=== PATIENT | male | born 1940 | race Caucasian/White ===

== ENCOUNTER 2019-03-29 16:48 | Inpatient (IN) | payer MEDICARE ==
[~2019-03-29] VITALS: Ht 182.9 cm; Wt 121.0 kg
[~2019-03-29 16:48] MED LIST: ACET500 PO; ALLERCLEAR10 MG PO; ANTIHISTAMINE; ATOR20 PO; Altoprev20 MG PO; Amaryl2 MG PO; BUPR100 PO; BUPR150ER PO; Bactrim Ds Tab1 EACH PO; CENTRUM SILVER1 EAC1 PO; FURO40 PO; GABA100 PO; GLUC500 PO; HYDCHL25 PO; IBUP800 PO; Keflex500 MG PO; LISI20 PO; Lopressor 25 mg25 MG PO; METF500C PO; Naprosyn500 MG PO; POTCHL20ER PO; Percocet 10-321 EACH PO; Percocet 5-3251 EACH PO; [UNRECOGNIZED DRUG - SUPPLY] MC
[2019-03-29 17:36] LABS: BASOPHILS ABSOLUTE AUTO 0.06 K/mm3 (0.00-0.23); BASOPHILS PERCENT AUTO 1 % (0-2); EOSINOPHILS ABSOLUTE AUTO 0.43 K/mm3 (0.00-0.68); EOSINOPHILS PERCENT AUTO 4 % (0-6); Hematocrit 37.2 % (37.0-53.0); Hemoglobin 11.7 g/dL (13.5-17.5); IMMATURE GRAN ABSOLUTE AUTO 0.04 K/mm3 (0.00-0.10); IMMATURE GRAN PERCENT AUTO 0 % (0-1); LYMPHOCYTES ABSOLUTE AUTO 1.17 K/mm3 (0.84-5.20); LYMPHOCYTES PERCENT AUTO 10 % (21-46); MONOCYTES ABSOLUTE AUTO 1.11 K/mm3 (0.16-1.47); MONOCYTES PERCENT AUTO 10 % (4-13); Mean Corpuscular HGB 28.7 pg (26.0-34.0); Mean Corpuscular HGB Conc 31.5 g/dL (31.5-36.5); Mean Corpuscular Volume 91 fL (80-100); Mean Platelet Volume 10.4 fL (9.1-12.4); NEUTROPHILS ABSOLUTE AUTO 8.63 K/mm3 (1.96-9.15); NEUTROPHILS PERCENT AUTO 76 % (41-73); Platelet Count 315 K/mm3 (150-400); RDW Coefficient Variation 14.4 % (11.7-14.2); RDW Standard Deviation 48.4 fL (35.1-46.3); Red Blood Cell Count 4.07 M/mm3 (4.30-5.90); White Blood Cell Count 11.44 K/mm3 (4.00-11.30)
[2019-03-29 17:55] LABS: C-REACTIVE PROTEIN, EXT RANGE 11.4 mg/dL (0.000-0.300)
[2019-03-29 17:58] LABS: Albumin, Blood 3.6 g/dL (3.4-5.0); Albumin/Globulin Ratio 0.9 (0.8-1.8); Bilirubin, Total 0.4 mg/dL (0.1-1.0); Bun/Creatinine Ratio 36.6 (12.0-20.0); Calcium, Blood 9.3 mg/dL (8.5-10.1); Creatinine, Blood 1.91 mg/dL (0.60-1.20); Potassium, Blood 4.4 mmol/L (3.5-5.5); Total Protein, Blood 7.6 g/dL (6.4-8.2)
[2019-03-30 05:06] LABS: Vancomycin, Random 17.6 ug/mL
--- NOTE | 2019-03-30 06:34 | NUR ---
SHIFT SUMMARY PT RESTING WELL THIS AM. AAOX4. NPO FOR PROCEDURE. DISCOMFORT AT TOLERABLE LEVEL T/O NIGHT, NO NAUSEA/EMESIS. WOUND TO RIGHT KNEE DIRECTOR OF OPERATIONS, NO DRAINAGE THIS SHIFT. PT UP SBA TO RESTROOM, TOLERATES WELL. IVF + ABX PER ORDERS. PT UNABLE TO VERIFY HOME MEDICATIONS, WILL REPORT TO DAY SHIFT RN TO OBTAIN MEDICATION LIST FROM CAREGIVER. PT RESTING AT THIS TIME, NADN, CALL LIGHT IN REACH.
[2019-03-30] MEDS ORDERED: ELIQUIS5 M2 PO (11:10)
[2019-03-30] MEDS ORDERED: METO100ER PO (11:18)
--- NOTE | 2019-03-30 11:30 | NUR ---
Patient is sitting on the edge of bed and alert. Patient tells me about his medical issues, his careers (38 yrs in [email or web address] field) his spiritual journey (form Espiscopal, to Episcopalian to Jewish to no attendance). Patient tells me that he is still a Buddhist believer and finds strength prayer and music. I listen empathically, normalize patient's experience and provide pastoral elder counselor and companionship. Patient responds well and voices appreciation for the vait.
--- NOTE | 2019-03-30 12:08 | NUR ---
History, Chart, Medications and Allergies reviewed before start of procedure. Lungs with fine crackle right base. Denies SOB. Patient confirms NPO status and agrees with scheduled surgery. Pre-Op teaching done. Pt verbalizes understanding. Pt's ring removed and placed in baggy to put in chart. Notified floor nurse.
--- NOTE | 2019-03-30 19:23 | NUR ---
SHIFT SUMMARY PT POD 0 I&D W/WOUND VAC PLACEMENT ON RLE. FOAM COMPRESSED, SCANT AMT DRAINAGE PRESENT IN CANISTER. PT DENIES PAIN T/O SHIFT. SBA W/FWW. IV ABX AND FLUIDS PER EMAR.
[2019-03-31 05:27] LABS: BASOPHILS ABSOLUTE AUTO 0.06 K/mm3 (0.00-0.23); BASOPHILS PERCENT AUTO 1 % (0-2); EOSINOPHILS ABSOLUTE AUTO 0.34 K/mm3 (0.00-0.68); EOSINOPHILS PERCENT AUTO 4 % (0-6); Hematocrit 30.5 % (37.0-53.0); Hemoglobin 9.5 g/dL (13.5-17.5); IMMATURE GRAN ABSOLUTE AUTO 0.04 K/mm3 (0.00-0.10); IMMATURE GRAN PERCENT AUTO 1 % (0-1); LYMPHOCYTES ABSOLUTE AUTO 0.87 K/mm3 (0.84-5.20); LYMPHOCYTES PERCENT AUTO 10 % (21-46); MONOCYTES ABSOLUTE AUTO 0.82 K/mm3 (0.16-1.47); MONOCYTES PERCENT AUTO 9 % (4-13); Mean Corpuscular HGB 29.1 pg (26.0-34.0); Mean Corpuscular HGB Conc 31.1 g/dL (31.5-36.5); Mean Corpuscular Volume 93 fL (80-100); Mean Platelet Volume 10.4 fL (9.1-12.4); NEUTROPHILS ABSOLUTE AUTO 6.57 K/mm3 (1.96-9.15); NEUTROPHILS PERCENT AUTO 76 % (41-73); Platelet Count 235 K/mm3 (150-400); RDW Coefficient Variation 14.4 % (11.7-14.2); RDW Standard Deviation 49.6 fL (35.1-46.3); Red Blood Cell Count 3.27 M/mm3 (4.30-5.90)
[2019-03-31 05:43] LABS: Anion Gap 5 mmol/L (6-16); Blood Urea Nitrogen 47 mg/dL (8-24); Bun/Creatinine Ratio 27.8 (12.0-20.0); CO2, Blood 26 mmol/L (21-32); Calcium, Blood 8.4 mg/dL (8.5-10.1); Chloride, Blood 112 mmol/L (98-108); Creatinine, Blood 1.69 mg/dL (0.60-1.20); Glomerular Filtration Rate 42 (60-); Glucose, Blood 155 mg/dL (70-99); Potassium, Blood 4.4 mmol/L (3.5-5.5); Sodium, Blood 143 mmol/L (136-145); Vancomycin, Random 13.3 ug/mL
--- NOTE | 2019-03-31 06:39 | NUR ---
SHIFT SUMMARY: NO ACUTE CHANGES THIS SHIFT. HE DID STATE THAT HE IS BEGINNING TO HAVE SOME MILD PAIN IN HIS LEG. HE REQUESTED MEDICATION FOR THIS. HE WAS INFORMED THAT HE HAS GABAPENTIN SCHEDULED AND HE FELT THAT WOULD BE EFFECTIVE AND WAS CONTENT TO WAIT UNTIL THE SCHEDULED TIME. HE IS ABLE TO MAKE HIS NEEDS KNOWN. HE WORE HIS CPAP DURING THE NIGHT. HE DID HAVE ONE EPISODE OF URINARY INCONTINENCE. VSS.
--- NOTE | 2019-03-31 08:28 | NUR ---
DR. TRAYLOR IN TO SEE PT AT THIS TIME
--- NOTE | 2019-03-31 12:59 | NUR ---
Patient is sitting on the edge of his bed and alert. Patient openly shares about his surgery, his , Kalyn, and about his spiritual struggles. I listen empathically and provide pastoral clinical counselor and prayer. Patient responds well and shows signs of catharsis. I will continue to remain available to patient and family.
--- NOTE | 2019-03-31 13:33 | NUR ---
MIDSHIFT NOTE PT A&OX4, CURRENTLY RESTING IN BED. WOUND VAC IN PLACE WITH DRESSING C/D/I AND COMPRESSED; DRAINING SS. ABX AND FLUIDS INFUSING. VSS AT BASELINE. PAIN MANAGED PER EMAR. TOLERATING REGULAR DIET. WORKED WITH THERAPY TODAY. REPORTS VOIDING WITHOUT DIFFICULTY AND PASSING FLATUS. CALL LIGHT WITHIN REACH AND PT DEMONSTRATED APPROPRIATE USE.
--- NOTE | 2019-03-31 17:41 | NUR ---
SHIFT SUMMARY PT A&OX4 WITH VS AT BASELINE. RECEIVED ABX AND NS PER EMAR. REPORTS PAIN TOLERABLE. BM AND VOIDING TODAY, USES BSC W/ASSIST. WOUND VAC IN PLACE, DRESSING C/D/I AND COMPRESSED, DRAINING SS. CALL LIGHT WITHIN REACH AND IS ABLE TO USE IT APPROPRIATELY.
[2019-04-01 04:26] LABS: Bun/Creatinine Ratio 20.4 (12.0-20.0); Calcium, Blood 8.3 mg/dL (8.5-10.1); Creatinine, Blood 1.57 mg/dL (0.60-1.20); Potassium, Blood 4.4 mmol/L (3.5-5.5)
--- NOTE | 2019-04-01 04:34 | NUR ---
SHIFT SUMMARY POD2 I&D R KNEE. PATIENT AA0X4, VSS. WOUND VAC IN PLACE FOAM COMPRESSED AND DRAINING SS FLUID. PATIENT SITS ON EDGE OF BED TO URINATE. DENIES PAIN DURING SHIFT. CPAP IN PLACE DURING NIGHT. PATIENT ASLEEP MOST OF NIGHT.
--- NOTE | 2019-04-01 08:18 | NUR ---
DR. TRAYLOR IN TO SEE PT
--- NOTE | 2019-04-01 13:40 | NUR ---
WORKING WITH THERAPY AT THIS TIME
--- NOTE | 2019-04-01 15:59 | NUR ---
Patient is lying in bed and resting but easily awakens to the sound of his name. Patient shares with me his frustration about having to go to a rehabilitation center instead of going home. We talk about what might be good about it (quality of care, social aspect, it is for a short 2 wk duration). Patient warms up to the idea. I listen empathically and provide prayer. Patient responds well and shows signs of an elevated mood. I will continue to be available to patient and family.
--- NOTE | 2019-04-01 17:51 | NUR ---
SHIFT SUMMARY PT A&OX4 W/ VS AT BASELINE. RAMAKRISHNA WRAP AND PATENT WOUND VAC IN PLACE; DRESSING C/D/I. DRESSING IS TO BE CHANGED TOMORROW. DRAINING SS. ABLE TO USE URINAL AT BEDSIDE, REPORTS PASSING FLATUS. TOLERATING DIET. REPOSITIONS SELF IN BED. WORKED WITH THERAPY AND SPIRITUAL CARE. UP IN CHAIR TODAY. CALL LIGHT WITHIN REACH AND DEMONSTRATES APPROPRIATE USE.
--- NOTE | 2019-04-02 00:47 | NUR ---
SOB: PT REP NEW ONSET SOB AFTER SOMEONE CAME INTO ROOM W/STRONG SMELLING PERFUME. LUNGS CLEAR T/O, PT W/COUGH AND SOME SOB W/TALKING. O2 NC PLACED W/NO SIG CHANGE. CALLED AND NOTIFIED; NEW RT ORDERS REC. RT NOTIFIED OF NEW ORDERS.
--- NOTE | 2019-04-02 04:41 | NUR ---
SHIFT SUMMARY POD 3 I&D RIGHT ANKLE. AAX04, VSS. DRESSING IN PLACE, CDI. FOAM COMPRESSED. PATIENT DENIES PAIN DURING SHIFT. PATIENT SOB AFTER SMELLING STRONG PERFUME, COULD NOT CATCH BREATH AND RT CALLED PER MD, BREATHING TREATMENT GIVEN AND PATIENT STATED RELIEF. WAS ABLE TO CATCH BREATH AND RETURN TO SLEEP. CPAP ON DURING SHIFT. PATIENT HAS BEEN PLEASANT. USING URINAL WITH ASSISTANCE. TOELRATING PO WELL.
[2019-04-02 08:47] LABS: Bun/Creatinine Ratio 15.8 (12.0-20.0); Calcium, Blood 8.3 mg/dL (8.5-10.1); Creatinine, Blood 1.33 mg/dL (0.60-1.20); Potassium, Blood 4.2 mmol/L (3.5-5.5); Vancomycin, Trough 10.2 ug/mL (5.0-10.0)
--- NOTE | 2019-04-02 12:41 | NUR ---
SNF DISCHARGE PATIENTM PLANS FOR SNF DISCHARGE TODAY AT 1400 TO [facility]. REPRT PHONED TO JEREMY MARTEL AT [facility]
[2019-04-02] MEDS ORDERED: Augmentin 875-1 EACH PO (13:30)
[2019-04-02] MEDS ORDERED: Bactrim Ds Tab1 EACH PO (13:31)
--- NOTE | 2019-04-02 14:37 | NUR ---
1410 discharged with transport to go to [facility]
== END 2019-04-02 14:00 | DRG 580 ==
LOC: SURS 16:48
PROVIDERS: Internal Medicine; Nurse Practitioner Acute Care; Orthopaedic Surgery; Pharmacist; ADMIT Orthopaedic Surgery
PROC: 0JDN0ZZ Extraction of Right Lower Leg Subcutaneous Tissue and Fascia, Open Approach (ICD-10-PCS; principal; 2019-03-30 12:30)
DX: L02.419 Cutaneous abscess of limb, unspecified (principal); I48.20 Chronic atrial fibrillation, unspecified; L03.115 Cellulitis of right lower limb; G47.33 Obstructive sleep apnea (adult) (pediatric); E66.01 Morbid (severe) obesity due to excess calories; F41.8 Other specified anxiety disorders; Z79.84 Long term (current) use of oral hypoglycemic drugs; E11.22 Type 2 diabetes mellitus with diabetic chronic kidney disease; I12.9 Hypertensive chronic kidney disease with stage 1 through stage 4 chronic kidney disease, or unspecified chronic kidney disease; D63.1 Anemia in chronic kidney disease; S80.11XA Contusion of right lower leg, initial encounter; W19.XXXA Unspecified fall, initial encounter; Y93.9 Activity, unspecified; Y92.9 Unspecified place or not applicable; Z68.36 Body mass index [BMI] 36.0-36.9, adult; N18.3 Chronic kidney disease, stage 3 (moderate)
CPT/HCPCS: 36415; 80048; 80053; 80202; 82947; 85025; 85651; 86140; 87070; 87071; 87075; 87205; 90686; 93005; 93010; 94640; 94762; 97110; 97116; 97162; 97530; C1751; G0008; J2370; J2405; J2543; J2704; J2765; J3010; J3370; J7030; J7050; J7120

== ENCOUNTER 2019-06-23 14:32 | Emergency (ER) | payer MEDICARE ==
[~2019-06-23] VITALS: Ht 182.9 cm; Wt 124.7 kg
[~2019-06-23 14:32] MED LIST changes: +Augmentin 875-1 EACH PO; +ELIQUIS5 M2 PO; +METO100ER PO
[2019-06-23 15:12] LABS: Source, Urine Clean Catch
[2019-06-23 15:16] LABS: Bilirubin, Urine Neg (Neg); Blood, Urine 5+ (Neg); Glucose Qualitative, Urine Neg (Neg); Ketones, Urine Neg (Neg); Leukocyte Esterase, Urine 3+ (Neg); Nitrite, Urine Neg (Neg); Protein, Urine 3+ (Neg); Urobilinogen, Urine NORM (Normal)
[2019-06-23 15:28] LABS: Appearance, Urine Cloudy (Clear); Color, Urine Yellow (P-Yellow)
[2019-06-23 15:29] LABS: Red Blood Cells, Urine TNTC /hpf (0-2); White Blood Cells, Urine TNTC /hpf (0-5)
[2019-06-23 15:30] LABS: Bacteria Few /hpf; Squamous Epithelial Cells Not Seen /hpf (Few)
[2019-06-23] MEDS ORDERED: Cephalexin500 MG PO (16:34)
== END 2019-06-23 16:41 | disposition home or self-care (01) ==
LOC: ER 14:32
PROVIDERS: Physician Assistant
DX: N39.0 Urinary tract infection, site not specified (principal); E11.9 Type 2 diabetes mellitus without complications; I10 Essential (primary) hypertension; E78.5 Hyperlipidemia, unspecified; G47.30 Sleep apnea, unspecified; Z79.899 Other long term (current) drug therapy; Z79.84 Long term (current) use of oral hypoglycemic drugs; Z79.01 Long term (current) use of anticoagulants; Z87.891 Personal history of nicotine dependence
CPT/HCPCS: 81001; 87077; 87086; 87186; 99283

== ENCOUNTER → 2021-01-06 | Outpatient (CLI) | payer MEDICARE ==
[~2021-01-06] MED LIST changes: +Cephalexin500 MG PO
[2021-01-06 15:58] LABS: Protein, Urine Quantitative 134.8 mg/dL (0.0-11.9)
[2021-01-10 12:11] LABS: M-SPIKE, % Not Observed % (Not Observed); PROTEIN,TOTAL,URINE 95.7 mg/dL (Not Estab.)
== END ==
LOC: OLS 15:04 → LAB SHORT 15:04
PROVIDERS: Internal Medicine
DX: N18.32 Chronic kidney disease, stage 3b (principal)
CPT/HCPCS: 81050; 84156; 84166

== ENCOUNTER 2021-08-09 11:22 | Observation (INO) | payer MEDICARE ==
[~2021-08-09] VITALS: Ht 182.9 cm; Wt 136.1 kg
[~2021-08-09 11:22] MED LIST changes: +ACET325 PO; +Amaryl1 MG PO; -Amaryl2 MG PO; +BENADRYL25 MG PO; +CEFU250T47 PO; -CENTRUM SILVER1 EAC1 PO; +CENTRUM SILVER1 EAC2 PO; +DOXY100 PO; +Lisinopril2.5 MG PO; +TAMS.4ER PO; +TORSE20 PO; +VISBIOME 112.51 EACH PO; +WARF4 PO
[2021-08-09 16:11] LABS: BASOPHILS ABSOLUTE AUTO 0.03 K/mm3 (0.00-0.23); BASOPHILS PERCENT AUTO 0 % (0-2); EOSINOPHILS ABSOLUTE AUTO 0.24 K/mm3 (0.00-0.68); EOSINOPHILS PERCENT AUTO 3 % (0-6); Hematocrit 36.7 % (37.0-53.0); Hemoglobin 11.4 g/dL (13.5-17.5); IMMATURE GRAN ABSOLUTE AUTO 0.03 K/mm3 (0.00-0.10); IMMATURE GRAN PERCENT AUTO 0 % (0-1); LYMPHOCYTES ABSOLUTE AUTO 0.78 K/mm3 (0.84-5.20); LYMPHOCYTES PERCENT AUTO 10 % (21-46); MONOCYTES ABSOLUTE AUTO 0.57 K/mm3 (0.16-1.47); MONOCYTES PERCENT AUTO 8 % (4-13); Mean Corpuscular HGB 29.8 pg (26.0-34.0); Mean Corpuscular HGB Conc 31.1 g/dL (31.5-36.5); Mean Corpuscular Volume 96 fL (80-100); Mean Platelet Volume 10.1 fL (9.1-12.4); NEUTROPHILS ABSOLUTE AUTO 5.84 K/mm3 (1.96-9.15); NEUTROPHILS PERCENT AUTO 78 % (41-73); Platelet Count 186 K/mm3 (150-400); RDW Coefficient Variation 14.6 % (11.7-14.2); RDW Standard Deviation 51.7 fL (35.1-46.3); Red Blood Cell Count 3.82 M/mm3 (4.30-5.90); White Blood Cell Count 7.49 K/mm3 (4.00-11.30)
[2021-08-09 16:35] LABS: Bun/Creatinine Ratio 31.4 (12.0-20.0); Creatinine, Blood 1.18 mg/dL (0.60-1.20); Potassium, Blood 4.5 mmol/L (3.5-5.5)
[2021-08-09 18:10] LABS: International Normalized Ratio 1.99
--- NOTE | 2021-08-09 18:54 | NUR ---
DAY SHIFT SUMMARY ER ADMIT DUE TO INCREASED FALLS, PT HAD FALL LAST NIGHT. PT WAS DC'D FROM HOSPITAL YESTERDAY AFTER BEING TREATED FOR ACUTE RENAL FAILURE. PT AND ARE STAYING IN A HOTEL D/T BLACK MOLD IN HOME. PT STATES HE DOES NOT HAVE ROOM IN HOTEL ROOM TO MOVE AROUND WITH 4 WHEEL WALKER AND HAS FALLEN WHILE TRYING TO AMBULATE. PT IS A/O X2, MINIMUM OF 2 PERSON ASSIST. PT ORIENTED TO ROOM AND SURROUNDINGS INCLUCING CALL LIGHT.
[2021-08-10 05:39] LABS: International Normalized Ratio 2.12; Prothrombin Time Results 21.2 Sec (9.7-11.5)
[2021-08-10 05:47] LABS: Anion Gap 9 mmol/L (6-16); Blood Urea Nitrogen 37 mg/dL (8-24); Bun/Creatinine Ratio 32.5 (12.0-20.0); CO2, Blood 17 mmol/L (21-32); Calcium, Blood 8.4 mg/dL (8.5-10.1); Chloride, Blood 121 mmol/L (98-108); Creatinine, Blood 1.14 mg/dL (0.60-1.20); Glomerular Filtration Rate >60 (60-); Glucose, Blood 139 mg/dL (70-99); Potassium, Blood 4.2 mmol/L (3.5-5.5); Sodium, Blood 147 mmol/L (136-145)
--- NOTE | 2021-08-10 06:30 | NUR ---
SHIFT SUMMARY PATIENT REMAINED A/OX3 DISORIENTED TO TIME. IMPROVED MOBILITY ABLE TO REPOSITION SELF IN BED- YET NEEDING 1-2 ASSISTANCE WHEN MOVING POSITIONS FROM LYING TO SITTING TO DANGLE. ABLE TO SIT ON SIDE OF THE BED INDEPENDENTLY. REMAINED PAIN FREE THROUGHOUT SHIFT
[2021-08-10 14:03] LABS: Influenza A, PCR NEGATIVE (NEGATIVE); Influenza B, PCR NEGATIVE (NEGATIVE); Resp Syncytial Virus, PCR NEGATIVE (NEGATIVE); SARS-Cov-2 (COVID-19) PCR, MMC NEGATIVE (NEGATIVE)
--- NOTE | 2021-08-10 17:28 | NUR ---
DAY SHIFT SUMMARY 81YR OLD MALE ADMITTED FOR RECURRENT FALLS. PT'S CREDIT UNION MANAGER BROUGHT IN CLOTHES AND PERSONAL CPAP MACHINE TODAY. RT CAME IN TO SEE CPAP MACHINE. DISCHARGE ORDERS ENTERED BY MD BUT NO AUTHORIZATION FROM INSURANCE FOR SNF. CALL LIGHT WITHIN REACH OF PT AND ABLE TO CALL APPROPRIATELY. NO ACUTE CHANGES THIS SHIFT.
[2021-08-11 05:34] LABS: International Normalized Ratio 2.17; Prothrombin Time Results 21.7 Sec (9.7-11.5)
--- NOTE | 2021-08-11 06:39 | NUR ---
PM SHIFT SUMMARY PATIENT WAS HERE FOR A FEW WEEKS FOR ARF, HYPERKALEMIA AND PHYSICAL DECONDITIONING. DURING HIS STAY, PT SUGGESTED HE DC TO A SNF. HOWEVER, PATIENT BEGAN TO IMPROVE A BIT. HE WAS UNABLE TO GO TO HIS HOME HE HAS BLACK MOLD THERE AT THIS TIME. HE WAS DC'ED TO A HOTEL WITH A TYPE OF HOME HEALTHCARE. HE WAS TRYING TO TRANSITION INTO HIS BED AND HAD A FALL. HE WILL NOW BE GOING TO A SNF AND COULD BE DISCHARGING TODAY.
--- NOTE | 2021-08-11 15:39 | NUR ---
PATIENT WAS ALERT AND ORIENTED 4X ALL DAY. PATIENT USED CPAP AND SUPP 02 IN THE SENIOR CYTOGENETICS LABORATORY DIRECTOR AND WAS ROOM AIR DURING THE DAY. PATIENT IS AWAITING PLACEMENT AT A SNF TO HAVE BETTER SUPERVISION AND PHYSICAL THERAPY.
[2021-08-12 05:29] LABS: International Normalized Ratio 1.88; Prothrombin Time Results 18.9 Sec (9.7-11.5)
[2021-08-12 05:46] LABS: Bun/Creatinine Ratio 28.7 (12.0-20.0); Calcium, Blood 8.5 mg/dL (8.5-10.1); Creatinine, Blood 1.29 mg/dL (0.60-1.20); Potassium, Blood 4.4 mmol/L (3.5-5.5)
--- NOTE | 2021-08-12 06:47 | NUR ---
SHIFT SUMMARY: PATIENT HAS NO COMPLIANTS OF PAIN OR DISCOMFORT THIS SHIFT,VSS. WEARS CPAP FOR SLEEP, VOIDING IN THE URINAL WITH NO INC. PATIENT RINGS FOE ASSIST WITH URINAL.
--- NOTE | 2021-08-12 10:27 | NUR ---
PATIENT COMPLAINS OF DRY EYES AND WANTS EYE DROPS. DR. JAKE OMER STATED HE WOULD PLACE EYE DROP ORDERS FOR PATIENT.
--- NOTE | 2021-08-12 12:43 | NUR ---
PATIENT HAD DRY EYES TODAY POSSIBLE DUE TO CPAP. DROPS WERE ORDERED AND HELPED PATIENT WITH DRY EYES/PAIN IN EYES. PATIENT WAS A AND O 4X AND ATE THE MAJORITY OF MEALS. PATIENT HAS NO COMPLAINTS AT THIS TIME.
[2021-08-13 05:33] LABS: International Normalized Ratio 1.81; Prothrombin Time Results 18.3 Sec (9.7-11.5)
--- NOTE | 2021-08-13 06:49 | NUR ---
SHIFT SUMMARY: VSS, NO REPORTS OF PAIN OR DISCOMFORT. CALLS FOR ASSIST WITH THE URINAL. AWAITING APPROVEL FOR SNF.
--- NOTE | 2021-08-13 18:11 | NUR ---
SHIFT SUMMARY; PATIENT REMAINS ON MOSTLY BEDREST TODAY. HE WAS ABLE TO WORK WITH PT FOR A FEW MINUTES HOWEVER BECAME VERY TIRED AND ASKED TO STOP. HE DID ASKED TO SIT ON EDGE OF BED A FEW TIMES TODAY AND WAS ALSO COOPERATIVE WITH CARE. PATIENT HAD EPISODES OF CONFUSION NOTED MOSTLY IN THE AFTERNOON TODAY. PATIENT ABLE TO TAKE HIS MEDICATIONS WHOLE WITH WATER. HE USES CALL LIGHT APPROPRIATELY AND IS ABLE TO FEED HIMSELF AND IS COOPERATIVE WITH CARE. VITAL SIGNS ARE WNL. HE DID NOT REQUIRE ANY COVERAGE WITH INSULIN TODAY BLOOD SUGARS REMAINED WNL THROUGHOUT THE DAY. WILL REMAIN AVAILABLE FOR THIS PATIENT FOR ANY WANTS OR NEEDS UNTIL HAND OFF AFTER REPORT TO NOC SHIFT RN. IDA WILLIAM RN
--- NOTE | 2021-08-14 04:17 | NUR ---
SHIFT SUMMARY PATIENT ALERT AND CONFUSED AT TIME MARNI PAIN LUNGS SOUND CLEAR NO ACUTE CHANGE NOTED
[2021-08-14 05:59] LABS: International Normalized Ratio 2.36; Prothrombin Time Results 23.4 Sec (9.7-11.5)
[2021-08-14 06:07] LABS: Bun/Creatinine Ratio 31.6 (12.0-20.0); Calcium, Blood 8.2 mg/dL (8.5-10.1); Creatinine, Blood 1.36 mg/dL (0.60-1.20); Potassium, Blood 4.6 mmol/L (3.5-5.5)
--- NOTE | 2021-08-14 19:07 | NUR ---
SHIFT SUMMARY; PATIENT REMAINS IN BED DURING DAY. WORKED WITH PT AND OT TODAY HOWEVER PER REPORT FROM PT/OT PATIENT HAS DECLINED A LOT SINCE DISCHARGE ONE WEEK AGO. IS UNABLE TO STAND TO PIVOT TO COMMODE AND UNABLE TO HOLD HIMSELF UP IN BED. PATIENT SAYS ITS PAINFULL TO MOVE AND PUSHES AGAINST NURSE WHEN TRYING TO ROLL TO CHANGE ATTENDS. PATIENT FEEDS HIMSELF AND DOES NEED HIS FOOD CUT UP FOR HIM. HIS VITAL SIGNS ARE STABLE. HE USES CALL LIGHT APPRORPIRATELY DURING DAY.
--- NOTE | 2021-08-15 05:11 | NUR ---
SHIFT SUMMARY PATIENT REMAIN ALERT AND PLEASANT CONFUSED DENIES PAIN LUNGS SOUNDS CLEAR ASSISTED WITH URINAL PO FLUIDS ENCOURAGED AND OFFERED.NO ACUTE CHANGE IN THIS SHIFT
[2021-08-15 05:51] LABS: International Normalized Ratio 3.31; Prothrombin Time Results 32.1 Sec (9.7-11.5)
--- NOTE | 2021-08-15 08:01 | NUR ---
AM NOTE ASSUMED CARE OF PT. HE IS ORIENTATED TO SELF, MONTH/YEAR, [facility]/[place], BUT IS CONFUSED TO WHY HE'S HERE AND CONVERSATION IS CONFUSED IN GENERAL. C/O RIGHT LOWER CHEST PRESSURE, WORSE ON DEEP BREATH AND COUGHING, HE DESCRIBED YELLOW AND BROWN PHLEGM. BED ALARM ON, CALL LIGHT IN REACH, BED LOW. SCD ON.
--- NOTE | 2021-08-15 16:30 | NUR ---
MR STELLA IS CONFUSED, HE DOESN'T UNDERSTAND WHY HE IS HERE IN THE HOSPITAL, FOLLOWS INSTRUCTIONS WHEN REMINDED, BUT FORGETFUL. TURNED AND PROPPED WITH PILLOWS. INCONTINENT OF URINE AT TIMES, HAS ALSO USED THE URINAL. HAS NOT BEEN UP OOB, DID WORK WITH PT, BUT DID IN-BED EXERCISES. HE STILL HAS THE RIGHT SIDED CHEST PRESSURE, WORSE ON DEEP BREATH AND COUGHING. PULSE OX IN THE LOW 90S ON RA. BED LOW, CALL LIGHT IN REACH AND BED ALARM ON.
--- NOTE | 2021-08-16 04:18 | NUR ---
SHIFT SUMMARY PATIENT ALERT AND PLEASANT ABLE TO VOICE NEEDS DENIES PAIN ASSISTED WITH INCONTINENT CARE NO ACUTE CHANGE IN THIS SHIFT
[2021-08-16 05:49] LABS: International Normalized Ratio 2.44; Prothrombin Time Results 24.2 Sec (9.7-11.5)
--- NOTE | 2021-08-16 10:40 | NUR ---
SPOKE WITH DR TONY ON MORNING ROUNDS, VERBAL ORDER FOR YUMIKO SAAVEDRA PRN COUGH. PER NIGHT REPORT PT WAS COUGHING LAST NIGHT AND IT WAS DISTURBING HIS SLEEP. MR DOUGLAS IS UP IN THE CHAIR NOW, REMAINS CONFUSED, UNCHANGED FROM YESTERDAY.
[2021-08-16] MEDS ORDERED: LANTUS SOL100 UNIT/1 SC ×2 (14:18→14:20)
[2021-08-16 14:30] LABS: Influenza A, PCR NEGATIVE (NEGATIVE); Influenza B, PCR NEGATIVE (NEGATIVE); Resp Syncytial Virus, PCR NEGATIVE (NEGATIVE); SARS-Cov-2 (COVID-19) PCR, MMC NEGATIVE (NEGATIVE)
--- NOTE | 2021-08-16 16:50 | NUR ---
TRANSFER/ SHIFT NOTE MR DOUGLAS HAS UNCHANGED CONFUSION LEVEL TODAY - HE CAN ANSWER THE QUESTIONS OF WHAT HIS NAME IS, WHERE HE IS, DATE, BUT MOST OF HIS CONVERSATION IS CONFUSED ABOUT HIS SITUATION. COUGH PERSISTS, BUT LESS FREQUENT TODAY, UP TO THE CHAIR WITH PT, 2 PERSON HEAVY TRANSFER. HE FORGOT THE TRANSFER INSTRUCTIONS SEVERAL TIMES DURING THE TRANSFER. GOOD DIETARY INTAKE. CONTINENT AND INCONTINENT OF URINE, HAS URGENCY. BRUISES TO HIS SKIN, BLE 1+ EDEMA. VIOX ON, O2 SATS WERE LOW 90S. PIV REMOVED BY RN. PT TRANSFERED TO [facility] VIA CHAIR/ AMBULANCE TRANSPORT. REPORT CALLED TO HIS RECEIVING NURSE KATHI. PT LEFT [facility] AT AROUND 1630.
== END 2021-08-16 16:30 ==
LOC: ER 11:22 → MEDS 11:23 → ENPENDDIS 08-10 12:31 → MEDS 08-16 16:30
PROVIDERS: Emergency Medicine; Internal Medicine; ADMIT Internal Medicine
DX: R29.6 Repeated falls (principal); I48.20 Chronic atrial fibrillation, unspecified; I11.0 Hypertensive heart disease with heart failure; I50.32 Chronic diastolic (congestive) heart failure; E11.40 Type 2 diabetes mellitus with diabetic neuropathy, unspecified; E78.5 Hyperlipidemia, unspecified; N32.0 Bladder-neck obstruction; G47.33 Obstructive sleep apnea (adult) (pediatric); E66.9 Obesity, unspecified; Z68.41 Body mass index [BMI] 40.0-44.9, adult; Z79.01 Long term (current) use of anticoagulants; Z79.84 Long term (current) use of oral hypoglycemic drugs; Z87.891 Personal history of nicotine dependence; Z87.440 Personal history of urinary (tract) infections; Z20.822 Contact with and (suspected) exposure to COVID-19
CPT/HCPCS: 0241U; 36415; 80048; 82947; 85025; 85610; 94660; 94762; 97110; 97110-CQ; 97162; 97165; 97530; 97530-CO; 97530-CQ; 97535-CO; 99285; A9270; G0378; J1815; J2405

== ENCOUNTER 2021-09-27 18:21 | Inpatient (IN) | payer MEDICARE ==
[~2021-09-27] VITALS: Ht 182.9 cm; Wt 95.7 kg
[~2021-09-27 18:21] MED LIST changes: +LANTUS SOL100 UNIT/1 SC
[2021-09-27 19:44] LABS: BASOPHILS ABSOLUTE AUTO 0.05 K/mm3 (0.00-0.23); BASOPHILS PERCENT AUTO 1 % (0-2); EOSINOPHILS ABSOLUTE AUTO 0.44 K/mm3 (0.00-0.68); EOSINOPHILS PERCENT AUTO 4 % (0-6); Hematocrit 39.2 % (37.0-53.0); Hemoglobin 12.2 g/dL (13.5-17.5); IMMATURE GRAN ABSOLUTE AUTO 0.09 K/mm3 (0.00-0.10); IMMATURE GRAN PERCENT AUTO 1 % (0-1); LYMPHOCYTES ABSOLUTE AUTO 1.09 K/mm3 (0.84-5.20); LYMPHOCYTES PERCENT AUTO 10 % (21-46); MONOCYTES ABSOLUTE AUTO 0.96 K/mm3 (0.16-1.47); MONOCYTES PERCENT AUTO 9 % (4-13); Mean Corpuscular HGB 28.8 pg (26.0-34.0); Mean Corpuscular HGB Conc 31.1 g/dL (31.5-36.5); Mean Corpuscular Volume 93 fL (80-100); Mean Platelet Volume 10.6 fL (9.1-12.4); NEUTROPHILS ABSOLUTE AUTO 7.86 K/mm3 (1.96-9.15); NEUTROPHILS PERCENT AUTO 75 % (41-73); Platelet Count 396 K/mm3 (150-400); RDW Coefficient Variation 14.1 % (11.7-14.2); Red Blood Cell Count 4.23 M/mm3 (4.30-5.90); White Blood Cell Count 10.49 K/mm3 (4.00-11.30)
[2021-09-27 20:01] LABS: Base Excess Venous 0.7 mmol/L; Bicarbonate Venous 25.1 mmol/L (24.0-30.0); PCO2 Venous 39.2 mmHg (38-42); PO2 Venous 167 mmHg (38-42); pH Blood Venous 7.42 (7.34-7.37)
[2021-09-27 20:23] LABS: Albumin, Blood 2.4 g/dL (3.4-5.0); Albumin/Globulin Ratio 0.5 (0.8-1.8); Bilirubin, Total 0.5 mg/dL (0.1-1.0); Bun/Creatinine Ratio 29.3 (12.0-20.0); Creatinine, Blood 1.5 mg/dL (0.60-1.20); Globulin, Blood 4.7 g/dL (2.2-4.0); Potassium, Blood 4.3 mmol/L (3.5-5.5); Total Protein, Blood 7.1 g/dL (6.4-8.2)
[2021-09-27 20:38] LABS: Source, Urine Straight Cath
[2021-09-27 20:44] LABS: Bilirubin, Urine Neg (Neg); Blood, Urine 2+ (Neg); Glucose Qualitative, Urine Neg (Neg); Ketones, Urine Neg (Neg); Leukocyte Esterase, Urine 3+ (Neg); Nitrite, Urine Neg (Neg); Protein, Urine 2+ (Neg); Urobilinogen, Urine NORM (Normal)
[2021-09-27 20:53] LABS: Color, Urine Yellow (P-Yellow)
[2021-09-27 20:54] LABS: Appearance, Urine Cloudy (Clear); Bacteria Many /hpf; Squamous Epithelial Cells Few /hpf (Few); White Blood Cells, Urine TNTC /hpf (0-5)
[2021-09-28] MEDS ORDERED: ATOR20 (00:02)
[2021-09-28] MEDS ORDERED: ATOR20 PO (00:03)
[2021-09-28] MEDS ORDERED: MIRALAX11910 PO (01:44)
[2021-09-28] MEDS ORDERED: SENN187 PO (01:49)
[2021-09-28] MEDS ORDERED: PHYTONADIONE5 MG PO (02:01)
[2021-09-28 03:55] LABS: BASOPHILS ABSOLUTE AUTO 0.04 K/mm3 (0.00-0.23); BASOPHILS PERCENT AUTO 0 % (0-2); EOSINOPHILS ABSOLUTE AUTO 0.42 K/mm3 (0.00-0.68); EOSINOPHILS PERCENT AUTO 4 % (0-6); Hematocrit 35.2 % (37.0-53.0); Hemoglobin 10.9 g/dL (13.5-17.5); IMMATURE GRAN ABSOLUTE AUTO 0.06 K/mm3 (0.00-0.10); IMMATURE GRAN PERCENT AUTO 1 % (0-1); LYMPHOCYTES ABSOLUTE AUTO 0.95 K/mm3 (0.84-5.20); LYMPHOCYTES PERCENT AUTO 10 % (21-46); MONOCYTES ABSOLUTE AUTO 0.79 K/mm3 (0.16-1.47); MONOCYTES PERCENT AUTO 8 % (4-13); Mean Corpuscular HGB 28.9 pg (26.0-34.0); Mean Corpuscular Volume 93 fL (80-100); NEUTROPHILS ABSOLUTE AUTO 7.22 K/mm3 (1.96-9.15); NEUTROPHILS PERCENT AUTO 76 % (41-73); Platelet Count 315 K/mm3 (150-400); RDW Standard Deviation 48.1 fL (35.1-46.3); Red Blood Cell Count 3.77 M/mm3 (4.30-5.90); White Blood Cell Count 9.48 K/mm3 (4.00-11.30)
[2021-09-28 04:17] LABS: Albumin, Blood 2.1 g/dL (3.4-5.0); Albumin/Globulin Ratio 0.5 (0.8-1.8); Bilirubin, Total 0.6 mg/dL (0.1-1.0); Bun/Creatinine Ratio 29.5 (12.0-20.0); Calcium, Blood 8.3 mg/dL (8.5-10.1); Creatinine, Blood 1.22 mg/dL (0.60-1.20); Globulin, Blood 4.2 g/dL (2.2-4.0); Total Protein, Blood 6.3 g/dL (6.4-8.2)
[2021-09-28 05:14] LABS: Automated BF RBC Count 0.007 M/mm3 (0-0); Automated BF WBC Count 3.263 K/mm3 (0-999); Body Fluid WBC Count 3263 /mm3 (0-999); RBC Count, Body Fluid 7000 /mm3 (0-0)
[2021-09-28 05:33] LABS: Albumin, Body Fluid 1.7 g/dL; Lactate Dehydrogenase, Body Fl 788 U/L
[2021-09-28 05:35] LABS: International Normalized Ratio 1.96; Prothrombin Time Results 19.7 Sec (9.7-11.5)
[2021-09-28 05:51] LABS: pH, Body Fluid 7.5
--- NOTE | 2021-09-28 05:52 | NUR ---
ADMIT NOTE AND SHIFT SUMMARY PT ARRIVED TO PCU FROM ED VIA ED STRETCHER AT APPROX 0130. PT WAS SLID BY 4 STAFF FROM ED STRETCHER TO PCU BED. PT ALERT, PLEASANT, ORIENTED TO SELF. UNABLE TO STATE WHERE HE WAS OR WHY. SP02>92% ON RA. TELEMETRY SHOWS AFIB, HR 60'S-90'S. DENIES PAIN. PT INCONTINENT UPON ARRIVAL, ATTENDS CHANGED, C/D/I. PT STATES ABLE TO USE URINAL WITH HELP. SMALL BM UPON ARRIVAL. NS INFUSING PER EMAR. MD MC ARRIVED TO ROOM, SHOWING PER CHEST XRAY, PT NEEDED CHEST TUBE. ICU EDITOR INDEX AND MD MC IN ROOM FOR CHEST TUBE PROCEDURE. PT CONTINUES TO SAT >92% ON RA. CHEST TUBE DRAINING YELLOW CLEAR LIQUID. CALL LIGHT IN REACH. PT REMAINS NPO PER ORDERS.
[2021-09-28 06:09] LABS: Total Cell Count, Body Fluid 100
[2021-09-28 06:10] LABS: Appearance, Body Fluid Hazy (Clear); Color, Body Fluid Yellow (None-Yellow)
--- NOTE | 2021-09-28 10:52 | NUR ---
Spiritual care visit conducted. Pt is lying in bed and sleeping. He easily awakens to the sound of his name. Pt is a bit groggy and disoriented as he wakes up. I ask pt if I could say a prayer for him and let him get back to resting. Pt says, "Sure, that would be great." I provide prayer. Pt responds with an "Amen" and an expression of gratitude for the prayer. Pt then starts to nod back to sleep. I will continue to remain available to patient and family.
[2021-09-28 14:39] LABS: Free Thyroxine 1.39 ng/dL (0.70-1.60); Thyroid Stimulating Hormone 0.928 uIU/mL (0.360-4.800)
--- NOTE | 2021-09-28 17:39 | NUR ---
SHIFT SUMMARY AT THE BEGINNING OF THE SHIFT PT WAS A&O TO SELF. AT THIS TIME PT IS A&Ox3. VSS, SPO2>92% 2L NC, AFIB 60-90'S. PT SLEEPING HEAVILY THROUGHOUT MOST OF THE DAY, UNABLE TO KEEP EYES OPEN FOR MORE THAN A FEW MINUTES AT A TIME. MOMENTS OF APNEA WHILE SLEEPING. BILATERAL UPPER EXTREMITY SWR IN PLACE TO PREVENT PULLING AT LINES AND CHEST TUBE. CHEST TUBE DRAIN HAD 63mL AT 0720, AT 1740 THERE WAS 172mL. FLUID IS SEROSANGUINEOUS. NO CREPITUS PRESENT. PT REMAINED BEDREST THROUGHOUT THE DAY. UNABLE TO ADMINISTER PO MEDICATIONS DO TO PT NOT BEING ALERT ENOUGH. ORAL CARE PROVIDED. WILL CONTINUE TO MONITOR UNTIL REPORT TO NOC.
--- NOTE | 2021-09-28 18:33 | NUR ---
THIS RN AGREES W/ STUDENT NURSE DOCUMENTATION THIS SHIFT.
--- NOTE | 2021-09-28 22:20 | NUR ---
CALL TO DR. YORDY OMER PT ADMITTED WITH METABOLIC ENCEPHALOPATHY, UTI, RIGHT PNUEMOTHORAX & EMPYEMA VS. PARPNEUMONIC EFFUSION. CHEST TUBE PLACED WHEEL BRAIDER OF 09/28. MD NOTES IN THE 0 HOUR STATES THAT CHEST TUBE WAS PLACED TO WALL SUCTION. WALL SUCTION CONNECTED TO CHEST TUBE BUT SUCTION NOT ON AT TIME OF MY PREVIOUS ASSESSMENT OF PATIENT. ALSO, NO ORDERS FOR MANAGEMENT/MONITORING OF CHEST TUBE NOTED IN THE EMR. SUCH, I AM SEEKING CLARIFICATION OF THE TREATMENT PLAN. SUCH, I AM SEEKING CLARIFICATION OF TREATMENT PLAN IN REGARDS TO THE CHEST TUBE PLACEMENT. REQUESTED ORDER FOR NURSE MANAGEMENT/MONITORING OF CHEST TUBE RECEIVED. WALL SUCTION IN PLACE PER ORDER.
[2021-09-29 05:20] LABS: BASOPHILS ABSOLUTE AUTO 0.05 K/mm3 (0.00-0.23); BASOPHILS PERCENT AUTO 1 % (0-2); EOSINOPHILS ABSOLUTE AUTO 0.41 K/mm3 (0.00-0.68); EOSINOPHILS PERCENT AUTO 4 % (0-6); Hemoglobin 10.3 g/dL (13.5-17.5); IMMATURE GRAN ABSOLUTE AUTO 0.08 K/mm3 (0.00-0.10); IMMATURE GRAN PERCENT AUTO 1 % (0-1); LYMPHOCYTES ABSOLUTE AUTO 0.68 K/mm3 (0.84-5.20); LYMPHOCYTES PERCENT AUTO 7 % (21-46); MONOCYTES ABSOLUTE AUTO 0.77 K/mm3 (0.16-1.47); MONOCYTES PERCENT AUTO 8 % (4-13); Mean Corpuscular HGB 28.6 pg (26.0-34.0); Mean Corpuscular HGB Conc 30.3 g/dL (31.5-36.5); Mean Corpuscular Volume 94 fL (80-100); Mean Platelet Volume 10.4 fL (9.1-12.4); NEUTROPHILS ABSOLUTE AUTO 7.84 K/mm3 (1.96-9.15); NEUTROPHILS PERCENT AUTO 80 % (41-73); Platelet Count 298 K/mm3 (150-400); RDW Standard Deviation 48.7 fL (35.1-46.3); White Blood Cell Count 9.83 K/mm3 (4.00-11.30)
--- NOTE | 2021-09-29 05:43 | NUR ---
POC BLOOD GLUCOSE 133 AT APPROXIMATELY 23:50 ON 09/28 DID NOT TRANSMIT [facility]CROSS TO [facility].
[2021-09-29 05:58] LABS: Alanine Aminotransfer (ALT/SGP 30 U/L (12-78); Albumin, Blood 2.1 g/dL (3.4-5.0); Albumin/Globulin Ratio 0.5 (0.8-1.8); Alk Phos 111 U/L (50-136); Anion Gap 9 mmol/L (6-16); Aspartate Aminotrans (AST/SGOT 18 U/L (12-37); Bilirubin, Total 0.5 mg/dL (0.1-1.0); Blood Urea Nitrogen 25 mg/dL (8-24); Bun/Creatinine Ratio 25.8 (12.0-20.0); CO2, Blood 21 mmol/L (21-32); Calcium, Blood 8.6 mg/dL (8.5-10.1); Chloride, Blood 117 mmol/L (98-108); Creatinine, Blood 0.97 mg/dL (0.60-1.20); Globulin, Blood 4.1 g/dL (2.2-4.0); Glomerular Filtration Rate >60 (60-); Glucose, Blood 136 mg/dL (70-99); Potassium, Blood 4.1 mmol/L (3.5-5.5); Sodium, Blood 147 mmol/L (136-145); Total Protein, Blood 6.2 g/dL (6.4-8.2)
--- NOTE | 2021-09-29 06:56 | NUR ---
NO ACUTE EVENTS OVERNIGHT. PT'S MENTATION IMPROVED FROM ADMISSION, ALERT & ORIENTED TO PERSON, PLACE, YEAR. PT RECEIVED EDUCATION WELL AND DID NOT ATTEMPT TO PULL AT ANY LINES OR TUBES THROUGHOUT THE SHIFT. RESTRAINTS ORDER DISCONTINUED WITH 0200 ASSESSMENT. CHEST TUBE PLEUREVAC CANNISTER CHANGED OUT DUE TO LEAK NOTED AT CONNECTION POINT BETWEEN CHEST TUBE AND ATRIUM TUBING. PT SLEPT WELL THROUGHOUT THE NIGHT. FREQUENT APNEIC EPISODES OBSERVED WHILE PT WAS SLEEPING. 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
--- NOTE | 2021-09-29 14:41 | NUR ---
PAUSES / CALL TO MD CALL TO MD TONY TO REPORT PT W/ 4 CARDIAC PAUSES SINCE 1230 TODAY W/ LONGEST PAUSE BEING 2.73 SECONDS. PT SLEEPING DURING PAUSES, WAKING TO VERBAL STIMULI W/ TOUCH. VSS. MONITOR SHOWING AFIB, HR 60's-90's. W/ ORDER TO REDUCE DOSE & CHANGE FREQUENCY OF CURRENT PO METOPROLOL TO 25 MG PO METOPROLOL BID, SEE ORDER.
--- NOTE | 2021-09-29 17:36 | NUR ---
SHIFT SUMMARY PT MORE A&O TODAY. PT SLEEPING HEAVILY FIRST PART OF DAY, MORE ALERT SECOND PORTION OF DAY AND CONVERSING WITH STAFF THIS EVENING. VSS, AFIB 60-90'S, TITRATED OXYGEN FROM 2L NC TO RA WITH SPO2>92%. OXYGEN MAY BE NEEDED DURING NOC FOR SLEEP APNEA. PT HAD FOUR PAUSES TODAY WITHIN ABOUT AN HOUR, NONE OF THEM LONGER THAN 3 SECONDS. SEE EMAR FOR CHANGE IN METOPROLOL ORDER. CHEST TUBE IS PATENT, ATTACHED TO SUCTION. CHEST TUBE DRAIN HAD 30ML OF SEROUS FLUID AT 0730. AT 1745 THE DRAIN HAD 41ML OF SEROUS FLUID. PT NOT COMPLAINING OF PAIN OR DISCOMFORT AT INSERTION SITE. PT TOLERATED PO INTAKE APPROPRIATELY, REQUIRES FEEDING DURING MEALS. WILL CONTINUE TO MONITOR AND PROVIDE CARE UNTIL REPORT TO NOC.
--- NOTE | 2021-09-29 18:14 | NUR ---
THIS RN AGREES W/ STUDENT NURSE DOCUMENTATION THIS SHIFT.
--- NOTE | 2021-09-29 18:48 | NUR ---
THIS RN AGREES W/ STUDENT NURSE DOCUMENTATION THIS SHIFT
[2021-09-30 04:11] LABS: BASOPHILS ABSOLUTE AUTO 0.05 K/mm3 (0.00-0.23); BASOPHILS PERCENT AUTO 1 % (0-2); EOSINOPHILS ABSOLUTE AUTO 0.59 K/mm3 (0.00-0.68); EOSINOPHILS PERCENT AUTO 6 % (0-6); Hematocrit 33.8 % (37.0-53.0); Hemoglobin 10.4 g/dL (13.5-17.5); IMMATURE GRAN ABSOLUTE AUTO 0.08 K/mm3 (0.00-0.10); IMMATURE GRAN PERCENT AUTO 1 % (0-1); LYMPHOCYTES ABSOLUTE AUTO 0.86 K/mm3 (0.84-5.20); LYMPHOCYTES PERCENT AUTO 9 % (21-46); MONOCYTES PERCENT AUTO 8 % (4-13); Mean Corpuscular HGB 28.9 pg (26.0-34.0); Mean Corpuscular HGB Conc 30.8 g/dL (31.5-36.5); Mean Corpuscular Volume 94 fL (80-100); NEUTROPHILS ABSOLUTE AUTO 7.71 K/mm3 (1.96-9.15); NEUTROPHILS PERCENT AUTO 77 % (41-73); Platelet Count 303 K/mm3 (150-400); RDW Coefficient Variation 14.1 % (11.7-14.2); White Blood Cell Count 10.09 K/mm3 (4.00-11.30)
[2021-09-30 04:31] LABS: Anion Gap 7 mmol/L (6-16); Blood Urea Nitrogen 23 mg/dL (8-24); Bun/Creatinine Ratio 25.3 (12.0-20.0); CO2, Blood 24 mmol/L (21-32); Calcium, Blood 8.3 mg/dL (8.5-10.1); Chloride, Blood 116 mmol/L (98-108); Creatinine, Blood 0.91 mg/dL (0.60-1.20); Glomerular Filtration Rate >60 (60-); Glucose, Blood 130 mg/dL (70-99); Potassium, Blood 4.1 mmol/L (3.5-5.5); Sodium, Blood 147 mmol/L (136-145); Vancomycin, Trough 14.1 ug/mL (5.0-10.0)
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
--- NOTE | 2021-09-30 18:44 | NUR ---
SHIFT SUMMARY: PT A&Ox3 T/OUT SHIFT, COOPERATIVE W/CARE, ANSWERS QUESTIONS APPROPRIATELY. PT MAINTAINS O2 SATS >92% ON RA. AFIB W/CONTROLLED RATE ON MONITOR. AT APPROX 0845, DR SALDAÑA CLAMPS CHEST TUBE FOR POTENTIAL REMOVAL ON 10/01. PT DENIES CHEST PAIN OR SOB; NO SIGNIFICANT DROP IN O2 SATS NOTED. PT HAS PUREE DIET, HOPING TO ADVANCE HIS DIET TOMORROW IF POSSIBLE. AT THIS TIME, PT RESTING QUIETLY IN BED. WILL CONTINUE TO MONITOR AND TREAT ACCORDINGLY UNTIL CHANGE OF SHIFT.
[2021-10-01 05:15] LABS: BASOPHILS ABSOLUTE AUTO 0.06 K/mm3 (0.00-0.23); BASOPHILS PERCENT AUTO 1 % (0-2); EOSINOPHILS ABSOLUTE AUTO 0.41 K/mm3 (0.00-0.68); EOSINOPHILS PERCENT AUTO 5 % (0-6); Hematocrit 34.1 % (37.0-53.0); Hemoglobin 10.5 g/dL (13.5-17.5); IMMATURE GRAN ABSOLUTE AUTO 0.07 K/mm3 (0.00-0.10); IMMATURE GRAN PERCENT AUTO 1 % (0-1); LYMPHOCYTES ABSOLUTE AUTO 0.71 K/mm3 (0.84-5.20); LYMPHOCYTES PERCENT AUTO 8 % (21-46); MONOCYTES ABSOLUTE AUTO 0.64 K/mm3 (0.16-1.47); MONOCYTES PERCENT AUTO 8 % (4-13); Mean Corpuscular HGB 28.5 pg (26.0-34.0); Mean Corpuscular HGB Conc 30.8 g/dL (31.5-36.5); Mean Corpuscular Volume 92 fL (80-100); Mean Platelet Volume 10.1 fL (9.1-12.4); NEUTROPHILS ABSOLUTE AUTO 6.67 K/mm3 (1.96-9.15); NEUTROPHILS PERCENT AUTO 78 % (41-73); Platelet Count 288 K/mm3 (150-400); RDW Coefficient Variation 14.1 % (11.7-14.2); RDW Standard Deviation 47.7 fL (35.1-46.3); Red Blood Cell Count 3.69 M/mm3 (4.30-5.90); White Blood Cell Count 8.56 K/mm3 (4.00-11.30)
[2021-10-01 05:38] LABS: Anion Gap 4 mmol/L (6-16); Blood Urea Nitrogen 19 mg/dL (8-24); Bun/Creatinine Ratio 21.5 (12.0-20.0); CO2, Blood 26 mmol/L (21-32); Calcium, Blood 8.4 mg/dL (8.5-10.1); Chloride, Blood 115 mmol/L (98-108); Creatinine, Blood 0.88 mg/dL (0.60-1.20); Glomerular Filtration Rate >60 (60-); Glucose, Blood 153 mg/dL (70-99); Magnesium, Blood 1.9 mg/dL (1.6-2.4); Potassium, Blood 3.9 mmol/L (3.5-5.5); Sodium, Blood 145 mmol/L (136-145)
--- NOTE | 2021-10-01 06:47 | NUR ---
NO ACUTE EVENTS OVERNIGHT. MICRO RESULTS - NO GROWTH IN 3 DAYS IN PLEURAL FLUID SAMPLE. PT CONTINUES TO HAVE DROPS IN SpO2 INTO THE HIGH 70S, LOW 80S WHILE SLEEPIG DUE TO SUSTAINED PERIODS OF APNEA IN PT WITH KNOWN UNOBSTRUCTIVE SLEEP APNEA WITH OUTPATIENT USE OF CPAP/BIPAP.
--- NOTE | 2021-10-01 13:28 | NUR ---
CHEST TUBE REMOVAL: DR SALDAÑA REMOVES CHEST TUBE THIS AM APPROX 0930. CHEST TUBE DC'd WNL, DRESSED WITH GAUZE AND TEGADERM. PT TOLERATES WELL.
--- NOTE | 2021-10-01 15:27 | NUR ---
RECEIVED PT TO ROOM 1512
--- NOTE | 2021-10-01 16:52 | NUR ---
PT RECEIVED THIS AFT. HE IS A/O. SOME FORGETFUL. QUITE PLEASANT. COOP. NO C/O PAIN. LUNGS CLEAR . COVERING ON CHEST TUBE REMOVAL SITE SHOWS MIN DRIED BLOOD. PT STATES FEELS PRETTY GOOD. RESP EASY, UNLABORED. ON R.A. WATCHING TV. BED IN LOW POSITION, CALL LITE IN REACH, CALLS APPROP
--- NOTE | 2021-10-02 00:45 | NUR ---
PT HAS HAD X1 LOOSE/SOFT INCONTNINENT STOOLS TONIGHT. ATTENDS CHANGED PRN AND SPECIMEN SENT FOR C.DIFF, PENDING RESULTS.
--- NOTE | 2021-10-02 00:45 | NUR ---
PT HAS HAD X8 LOOSE/SOFT INCONTNINENT STOOLS TONIGHT. ATTENDS CHANGED PRN AND SPECIMEN SENT FOR C.DIFF, PENDING RESULTS.
[2021-10-02 03:15] LABS: C DIFFICILE DNA NEGATIVE (Negative)
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
--- NOTE | 2021-10-02 09:10 | NUR ---
PT PLEASANT A/O X2-3, FORGETFUL OF DETAILS. LAUGHS EASILY. DENIES PAIN AT THIS TIME. H/R REG, LIGHT MURMUR NOTED. NO TELE. LUNGS CLEAR RESP EASY, UNLABORED. ON R.A. BT X4 LAST BM LAST NITE. HAS HAD REPORTED SEVERAL LOOSE B/M. C-DIFF NEG. VOIDS PER URINAL. WHEELCHAIR AT BASELINE. USES BEDPAN. BED IN LOW POSITION, CALL LITE IN REACH, CALLS APPROP,
--- NOTE | 2021-10-02 09:33 | NUR ---
PT PLEASANT AND COOPERATIVE. ENJOYS THE COMPANY. A/O X2-3. DENIES PAIN. H/R IRREGULAR IN 80'S. NO MURMUR NOTED. NO TELE. RT LUNG BASE DIMINISHED. BREATHING IS EASY AND UNLABORED. ON RO0M AIR. PT HAS SEVERAL LOOSE BOWEL MOVEMENTS LAST NIGHT PER REPORT. 1-2 PERSON ASSIST WITH NEEDS. WHEELCHAIR BOUND AT BASELINE. REDNESS ON COCCYX, MEPLEX IN PLACE. ECHYMOISIS AND BRUISING TO RT SIDE OF CHEST FROM CHEST TUBE PLACEMENT. DRESSING IS DRY AND INTACT. NO C.O PAIN. PT HAS GENERALIZED WEAKNESS. TREMORS PRESENT. HELD MIRLAX AND INSULIN FOR AM MEDICATIONS. BED IN LOW POSITION, CALL LIGHT IN REACH, CALLS APPROPRIALTY.
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
--- NOTE | 2021-10-02 17:51 | NUR ---
PT PLEASANT AND COOPERATIVE. A/O X2-3. DENIES PAIN. H/R REGUALR IN 70'S. NO TELE OR MURMUR NOTED. LUNGS CLEAR BILATERALLY. BREATHING IS EASY AND UNLABORED. ON ROOM AIR. LAST BOWEL MOVEMENT WAS EARLY THIS AM AND WAS LOOSE. PT WORKED WITH PT AND OT TODAY. ASSISTED PT BACK INTO BED FROM WHEELCHAIR. PT WHEELCHAIR AT BASELINE. PT HAS GENERALIZED WEAKNESS. BED IN LOW POSITION, CALL LIGHT IN REACH, CALLS APPROPRIALTY.
--- NOTE | 2021-10-02 19:11 | NUR ---
AGREE WITH STUDENT NOTES.
--- NOTE | 2021-10-03 06:04 | NUR ---
ROUGE PRESSER SUMMARY ADMITTED FOR ACUTE ENCEPHALOPATHY. PT IS FULL CODE. HE IS ALERT AND ORIENTED X2-3, SOMETIMES FORGETFUL. PT HAS HAD MULTIPLE SOFT BMS THROUGHOUT THE SHIFT. USING THE URINAL WITH ASSISTANCE. PT IS NORMALLY IN WC AT BASELINE. HE REPORTS SOME ITCHING TO THE PREVIOUS CHEST TUBE SITE. DRESSING HAS SOME DRIED BLOOD BUT IS INTACT.
--- NOTE | 2021-10-03 16:35 | NUR ---
PATIENT A/OX3 THIS SHIFT, ABLE TO REPOSITION SELF IN BED. INCONTINENT OF BOWEL, STOOL LOOSE AND BOWEL CARE HELD. CONTINENT/INCONTINENT OF URINE CAN USE A URINAL WITH ASSISTANCE AT TIMES. VSS, REMAINS ON RA, CPAP AT [facility]. DRESSING TO PRESSURE SORE ON L BUTTOCKS CHANGED AND REMAINS C/D/I. PATIENT USING CALL LIGHT APPROPRIATELY FOR ASSISTANCE. 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 PATIENT TOLERATING DIET, ACHS BLOOD SUGARS, NO COVERAGE NEEDED THIS SHIFT.
--- NOTE | 2021-10-04 04:52 | NUR ---
MECHANICAL SHOVEL OPERATOR SUMMARY PT AWAITING LONG-TERM PLACEMENT. HE HAS BEEN SLEEPING THROUGHOUT THE NIGHT. MINIMAL REQUESTS. NO COMPLAINTS OF PAIN. ALERT AND ORIENTED X3 BUT FORGETFUL AT TIMES. COOPERATIVE AND PLEASANT. PT IS WC AT BASELINE BUT IS HELPFUL WITH ROLLING DURING BED CHANGES.
[2021-10-04 16:09] LABS: International Normalized Ratio 1.33; Prothrombin Time Results 13.7 Sec (9.7-11.5)
--- NOTE | 2021-10-04 16:51 | NUR ---
NO ACUTE CHANGED THIS SHIFT. PATIENT AWAITING PLACEMENT. VSS, ON RA. TOLERATING ADA DIET, ACHS BLOOD SUGARS. NO SLIDING SCALE COVERAGE NEEDED THIS SHIFT. FALL PRECAUTIONS IN PLACE, PATIENT CALLING APPROPRIATELY FOR ASSISTANCE. A/OX3, FORGETFUL AT TIMES. CALM AND COOPERATIVE WITH CARE. SMALL DIME SIZED PRESSURE SORE TO L BUTTOCKS, MEPILEX DRESSING IN PLACE AND REMAINS C/D/I.
--- NOTE | 2021-10-05 04:37 | NUR ---
PT AXO3.PT HAD 2 LOOSE BMS; SCHEDULED SENNA HELD HS. PT INCOTINENT OF URINE/BOWEL. PT REPOSITIONED Q2HRS. PT DENIED ANY PAIN/CONCERNS. NO PRN MEDS GIVEN. V/S WNL. PT HAD AN UNEVENTFUL NIGHT. PT RESTING THROUGHTOUT THE NIGHT. ROUNDING COMPLETED Q1-2 HOURS ORDERED. IV TO L) FOREARM FLUSHED W/O DIFFICULTY.
[2021-10-05 04:59] LABS: International Normalized Ratio 1.3; Prothrombin Time Results 13.4 Sec (9.7-11.5)
[2021-10-05 14:41] LABS: Influenza A, PCR NEGATIVE (NEGATIVE); Influenza B, PCR NEGATIVE (NEGATIVE); Resp Syncytial Virus, PCR NEGATIVE (NEGATIVE); SARS-Cov-2 (COVID-19) PCR, MMC NEGATIVE (NEGATIVE)
[2021-10-05] MEDS ORDERED: AMOCLA500 PO (14:46)
[2021-10-05] MEDS ORDERED: VISBIOME 112.51 EACH PO (14:47)
[2021-10-05] MEDS ORDERED: INSULIN LI100 UNIT/6 SC (14:49)
--- NOTE | 2021-10-05 17:40 | NUR ---
SHIFT SUMMARY PATIENT TRANSPORTED VIA WHEELCHAIR TO [facility] PATIENT TRANSFERED BACK TO [facility]. DISCHARGE INSTRUCTIONS FAXED TO [facility]. [facility] BELONGINGS SENT WITH PATIENT. IV REMOVED WITHOUT DIFFICULTY. [facility] TO SCHEDULE FOLLOW UP APPOINTMENTS. REPORT GIVEN TO RECIEROWAN NGUYEN AT [facility].
== END 2021-10-05 17:38 | DRG 199 ==
LOC: ER 18:21 → PCU 23:21 → MEDS 23:21 → PCU 09-28 01:25 → MEDS 10-01 15:02
PROVIDERS: Internal Medicine; Student in an Organized Health Care Education/Training Program; ADMIT Internal Medicine
PROC: 0W9930Z Drainage of Right Pleural Cavity with Drainage Device, Percutaneous Approach (ICD-10-PCS; principal; 2021-09-28)
DX: J93.9 Pneumothorax, unspecified (principal); J18.9 Pneumonia, unspecified organism; G92.8 Other toxic encephalopathy; I48.20 Chronic atrial fibrillation, unspecified; N39.0 Urinary tract infection, site not specified; N17.9 Acute kidney failure, unspecified; N18.30 Chronic kidney disease, stage 3 unspecified; I12.9 Hypertensive chronic kidney disease with stage 1 through stage 4 chronic kidney disease, or unspecified chronic kidney disease; G47.33 Obstructive sleep apnea (adult) (pediatric); Z20.822 Contact with and (suspected) exposure to COVID-19; E11.22 Type 2 diabetes mellitus with diabetic chronic kidney disease; Z79.02 Long term (current) use of antithrombotics/antiplatelets; E78.5 Hyperlipidemia, unspecified; E66.9 Obesity, unspecified; Z79.899 Other long term (current) drug therapy; Z88.8 Allergy status to other drugs, medicaments and biological substances; Z98.890 Other specified postprocedural states; E88.09 Other disorders of plasma-protein metabolism, not elsewhere classified; F03.90 Unspecified dementia, unspecified severity, without behavioral disturbance, psychotic disturbance, mood disturbance, and anxiety
CPT/HCPCS: 0241U; 32551; 36415; 51701; 70450; 71045; 71250; 80048; 80053; 80202; 81001; 82042; 82803; 82947; 83615; 83735; 83880; 83986; 84145; 84157; 84439; 84443; 85025; 85610; 87070; 87075; 87077; 87086; 87186; 87205; 87493; 88108; 88305; 89051; 93005; 93010; 94762; 96365-59; 96375-59; 97110; 97162; 97166; 97530; 99285-25; A9270; J0295; J0456; J0692; J0696; J1650; J1956; J2060; J3010; J3370; J7030; J7040; J7050; J7060; P9046

== ENCOUNTER 2021-10-31 18:21 | Emergency (ER) | payer MEDICARE ==
[~2021-10-31] VITALS: Ht 182.9 cm; Wt 103.9 kg
[~2021-10-31 18:21] MED LIST changes: +AMOCLA500 PO; +ATOR20; +INSULIN LI100 UNIT/6 SC; +MIRALAX11910 PO; +PHYTONADIONE5 MG PO; +SENN187 PO
[2021-10-31 19:34] LABS: Source, Urine Straight Cath
[2021-10-31 19:43] LABS: BASOPHILS ABSOLUTE AUTO 0.03 K/mm3 (0.00-0.23); BASOPHILS PERCENT AUTO 0 % (0-2); EOSINOPHILS ABSOLUTE AUTO 0.13 K/mm3 (0.00-0.68); EOSINOPHILS PERCENT AUTO 1 % (0-6); Hemoglobin 11.4 g/dL (13.5-17.5); IMMATURE GRAN ABSOLUTE AUTO 0.27 K/mm3 (0.00-0.10); IMMATURE GRAN PERCENT AUTO 2 % (0-1); LYMPHOCYTES ABSOLUTE AUTO 1.09 K/mm3 (0.84-5.20); LYMPHOCYTES PERCENT AUTO 6 % (21-46); MONOCYTES PERCENT AUTO 6 % (4-13); Mean Corpuscular HGB 28.4 pg (26.0-34.0); Mean Corpuscular HGB Conc 31.7 g/dL (31.5-36.5); Mean Corpuscular Volume 90 fL (80-100); Mean Platelet Volume 10.5 fL (9.1-12.4); NEUTROPHILS ABSOLUTE AUTO 14.57 K/mm3 (1.96-9.15); NEUTROPHILS PERCENT AUTO 85 % (41-73); Platelet Count 266 K/mm3 (150-400); RDW Coefficient Variation 16.1 % (11.7-14.2); RDW Standard Deviation 52.7 fL (35.1-46.3); Red Blood Cell Count 4.01 M/mm3 (4.30-5.90); White Blood Cell Count 17.09 K/mm3 (4.00-11.30)
[2021-10-31 19:49] LABS: Appearance, Urine Hazy (Clear); Bilirubin, Urine Neg (Neg); Blood, Urine 1+ (Neg); Color, Urine Yellow (P-Yellow); Glucose Qualitative, Urine Neg (Neg); Ketones, Urine Neg (Neg); Leukocyte Esterase, Urine 3+ (Neg); Nitrite, Urine Neg (Neg); Protein, Urine Neg (Neg); Specific Gravity, Urine 1.015 (1.003-1.022); Urobilinogen, Urine NORM (Normal)
[2021-10-31 19:57] LABS: Bun/Creatinine Ratio 46.1 (12.0-20.0); Calcium, Blood 8.2 mg/dL (8.5-10.1); Creatinine, Blood 1.02 mg/dL (0.60-1.20); Potassium, Blood 4.6 mmol/L (3.5-5.5)
[2021-10-31 20:14] LABS: Bacteria Few /hpf; Red Blood Cells, Urine Rare /hpf (0-2); Squamous Epithelial Cells Not Seen /hpf (Few); White Blood Cells, Urine TNTC /hpf (0-5)
[2021-10-31] MEDS ORDERED: AMOCLA875 PO (21:09)
== END 2021-10-31 22:43 | disposition home or self-care (01) ==
LOC: ER 18:21
PROVIDERS: Emergency Medicine
DX: R41.0 Disorientation, unspecified (principal); N39.0 Urinary tract infection, site not specified; J44.9 Chronic obstructive pulmonary disease, unspecified; I10 Essential (primary) hypertension; E03.9 Hypothyroidism, unspecified; F17.210 Nicotine dependence, cigarettes, uncomplicated; Z79.01 Long term (current) use of anticoagulants; Z79.4 Long term (current) use of insulin; Z79.899 Other long term (current) drug therapy
CPT/HCPCS: 36415; 71045; 80048; 81001; 85025; 96374; 99284-25; A9270; J0696

== ENCOUNTER 2021-11-13 01:14 | Emergency (ER) | payer MEDICARE ==
[~2021-11-13] VITALS: Ht 177.8 cm; Wt 79.4 kg
[~2021-11-13 01:14] MED LIST changes: +AMOCLA875 PO
[2021-11-13 01:59] LABS: Source, Urine Straight Cath
[2021-11-13 02:03] LABS: Appearance, Urine Cloudy (Clear); BASOPHILS ABSOLUTE AUTO 0.04 K/mm3 (0.00-0.23); BASOPHILS PERCENT AUTO 1 % (0-2); Bilirubin, Urine Neg (Neg); Blood, Urine 2+ (Neg); Color, Urine Yellow (P-Yellow); EOSINOPHILS ABSOLUTE AUTO 0.32 K/mm3 (0.00-0.68); EOSINOPHILS PERCENT AUTO 4 % (0-6); Glucose Qualitative, Urine Neg (Neg); Hematocrit 39.7 % (37.0-53.0); Hemoglobin 12.3 g/dL (13.5-17.5); IMMATURE GRAN ABSOLUTE AUTO 0.02 K/mm3 (0.00-0.10); IMMATURE GRAN PERCENT AUTO 0 % (0-1); Ketones, Urine Neg (Neg); LYMPHOCYTES ABSOLUTE AUTO 0.97 K/mm3 (0.84-5.20); LYMPHOCYTES PERCENT AUTO 12 % (21-46); Leukocyte Esterase, Urine 3+ (Neg); MONOCYTES ABSOLUTE AUTO 0.54 K/mm3 (0.16-1.47); MONOCYTES PERCENT AUTO 7 % (4-13); Mean Corpuscular HGB 28.5 pg (26.0-34.0); Mean Corpuscular Volume 92 fL (80-100); Mean Platelet Volume 11.3 fL (9.1-12.4); NEUTROPHILS ABSOLUTE AUTO 6.48 K/mm3 (1.96-9.15); NEUTROPHILS PERCENT AUTO 77 % (41-73); Nitrite, Urine Neg (Neg); Platelet Count 167 K/mm3 (150-400); Protein, Urine 2+ (Neg); RDW Coefficient Variation 17.5 % (11.7-14.2); RDW Standard Deviation 59.9 fL (35.1-46.3); Red Blood Cell Count 4.31 M/mm3 (4.30-5.90); Urobilinogen, Urine NORM (Normal); White Blood Cell Count 8.37 K/mm3 (4.00-11.30)
[2021-11-13 02:24] LABS: Albumin, Blood 2.8 g/dL (3.4-5.0); Albumin/Globulin Ratio 0.7 (0.8-1.8); Bilirubin, Total 0.6 mg/dL (0.1-1.0); Bun/Creatinine Ratio 31.5 (12.0-20.0); Calcium, Blood 8.6 mg/dL (8.5-10.1); Creatinine, Blood 1.11 mg/dL (0.60-1.20); Potassium, Blood 4.2 mmol/L (3.5-5.5); Total Protein, Blood 6.8 g/dL (6.4-8.2)
[2021-11-13 02:28] LABS: Bacteria Many /hpf; White Blood Cells, Urine TNTC /hpf (0-5)
[2021-11-13 02:29] LABS: Yeast/Fungi Urine Many /hpf
[2021-11-13 02:30] LABS: Red Blood Cells, Urine 0-2 /hpf (0-2); Squamous Epithelial Cells Not Seen /hpf (Few)
[2021-11-13] MEDS ORDERED: CEFD300 PO (02:47)
== END 2021-11-13 03:23 ==
LOC: ER 01:14
PROVIDERS: Emergency Medicine
DX: N39.0 Urinary tract infection, site not specified (principal); I10 Essential (primary) hypertension; J44.9 Chronic obstructive pulmonary disease, unspecified; Z79.899 Other long term (current) drug therapy; Z87.891 Personal history of nicotine dependence; Z79.01 Long term (current) use of anticoagulants; Z79.4 Long term (current) use of insulin
CPT/HCPCS: 36415; 51701; 71045; 80053; 81001; 82140; 83605; 84484; 85025; 87086; 87106; 93005; 93010; 96361-59; 96374-59; 99285-25; J0696; J7030

== ENCOUNTER → 2022-02-12 | Outpatient (CLI) | payer MEDICARE, OTHER ==
[~2022-02-12] MED LIST changes: +CEFD300 PO
[2022-02-12 13:59] LABS: Source, Urine Clean Catch
[2022-02-12 14:35] LABS: Bilirubin, Urine Neg (Neg); Blood, Urine 4+ (Neg); Glucose Qualitative, Urine Neg (Neg); Ketones, Urine Neg (Neg); Leukocyte Esterase, Urine 3+ (Neg); Nitrite, Urine Pos (Neg); Protein, Urine 3+ (Neg); Urobilinogen, Urine NORM (Normal)
[2022-02-12 16:59] LABS: Appearance, Urine Turbid (Clear); Color, Urine Yellow (P-Yellow); White Blood Cells, Urine TNTC /hpf (0-5)
[2022-02-12 17:00] LABS: Bacteria Many /hpf; Squamous Epithelial Cells Rare /hpf (Few)
[2022-02-12 17:01] LABS: Mucus Heavy (0-Heavy)
== END ==
LOC: EDSTATUS 10:17 → LAB RH 13:15
PROVIDERS: Internal Medicine
DX: N39.0 Urinary tract infection, site not specified (principal)
CPT/HCPCS: 81001; 87077; 87086; 87186

== ENCOUNTER → 2022-05-31 | Outpatient (CLI) | payer MEDICARE, OTHER ==
[2022-05-31 12:06] LABS: Appearance, Urine Bloody (Clear); Bilirubin, Urine Neg (Neg); Blood, Urine 5+ (Neg); Color, Urine Red (P-Yellow); Glucose Qualitative, Urine Neg (Neg); Ketones, Urine 1+ (Neg); Leukocyte Esterase, Urine 3+ (Neg); Nitrite, Urine Neg (Neg); Protein, Urine 3+ (Neg); Urobilinogen, Urine NORM (Normal)
[2022-05-31 12:28] LABS: Red Blood Cells, Urine TNTC /hpf (0-2); White Blood Cells, Urine TNTC /hpf (0-5)
[2022-05-31 12:29] LABS: Bacteria Many /hpf; Squamous Epithelial Cells Not Seen /hpf (Few); Triple Phosphate Crystals Few /hpf
[2022-05-31 17:13] LABS: Hematocrit 31.8 % (37.0-53.0); Hemoglobin 9.7 g/dL (13.5-17.5); Mean Corpuscular HGB 27.6 pg (26.0-34.0); Mean Corpuscular HGB Conc 30.5 g/dL (31.5-36.5); Mean Corpuscular Volume 91 fL (80-100); Mean Platelet Volume 10.9 fL (9.1-12.4); Platelet Count 279 K/mm3 (150-400); RDW Coefficient Variation 15.7 % (11.7-14.2); RDW Standard Deviation 52.1 fL (35.1-46.3); Red Blood Cell Count 3.51 M/mm3 (4.30-5.90); White Blood Cell Count 9.89 K/mm3 (4.00-11.30)
[2022-05-31 17:17] LABS: Bun/Creatinine Ratio 31.5 (12.0-20.0); Potassium, Blood 4.6 mmol/L (3.5-5.5)
== END | disposition home or self-care (01) ==
LOC: EDSTATUS 09:40 → LAB RH 10:49
PROVIDERS: Internal Medicine
DX: N39.0 Urinary tract infection, site not specified (principal)
CPT/HCPCS: 80048; 81001; 85027; 87077; 87086; 87186

== ENCOUNTER → 2022-06-02 | Outpatient (CLI) | payer MEDICARE, OTHER ==
[2022-06-02 11:20] LABS: Hematocrit 26.6 % (37.0-53.0); Hemoglobin 8.1 g/dL (13.5-17.5); Mean Corpuscular HGB 27.1 pg (26.0-34.0); Mean Corpuscular HGB Conc 30.5 g/dL (31.5-36.5); Mean Corpuscular Volume 89 fL (80-100); Mean Platelet Volume 10.5 fL (9.1-12.4); Platelet Count 268 K/mm3 (150-400); RDW Coefficient Variation 15.3 % (11.7-14.2); Red Blood Cell Count 2.99 M/mm3 (4.30-5.90); White Blood Cell Count 8.87 K/mm3 (4.00-11.30)
[2022-06-02 11:39] LABS: Albumin, Blood 2.4 g/dL (3.4-5.0); Albumin/Globulin Ratio 0.5 (0.8-1.8); Bilirubin, Total 0.5 mg/dL (0.1-1.0); Bun/Creatinine Ratio 35.4 (12.0-20.0); Calcium, Blood 9.2 mg/dL (8.5-10.1); Creatinine, Blood 1.98 mg/dL (0.60-1.20); Globulin, Blood 4.8 g/dL (2.2-4.0); Potassium, Blood 4.6 mmol/L (3.5-5.5); Total Protein, Blood 7.2 g/dL (6.4-8.2)
== END | disposition home or self-care (01) ==
LOC: EDSTATUS 09:42 → LAB RH 10:00
PROVIDERS: Internal Medicine
DX: N39.0 Urinary tract infection, site not specified (principal)
CPT/HCPCS: 80053; 85027

== ENCOUNTER → 2022-07-12 | Outpatient (CLI) | payer MEDICARE, OTHER ==
[2022-07-12 15:07] LABS: Appearance, Urine Cloudy (Clear); Bilirubin, Urine Neg (Neg); Blood, Urine 4+ (Neg); Color, Urine Yellow (P-Yellow); Glucose Qualitative, Urine Neg (Neg); Ketones, Urine Neg (Neg); Leukocyte Esterase, Urine 3+ (Neg); Nitrite, Urine Neg (Neg); Protein, Urine 2+ (Neg); Urobilinogen, Urine NORM (Normal)
[2022-07-12 15:24] LABS: Bacteria Many /hpf; Hyaline Casts 0-2 /lpf (0-2); Red Blood Cells, Urine TNTC /hpf (0-2); Squamous Epithelial Cells Rare /hpf (Few); White Blood Cells, Urine TNTC /hpf (0-5)
== END ==
LOC: EDSTATUS 09:50 → LAB RH 14:00
PROVIDERS: Internal Medicine
DX: N39.0 Urinary tract infection, site not specified (principal)
CPT/HCPCS: 81001; 87077; 87086; 87186

== ENCOUNTER → 2022-08-31 | Outpatient (CLI) | payer MEDICARE, OTHER ==
[2022-08-31 10:38] LABS: Appearance, Urine Cloudy (Clear); Bilirubin, Urine Neg (Neg); Blood, Urine 4+ (Neg); Color, Urine Yellow (P-Yellow); Glucose Qualitative, Urine Neg (Neg); Ketones, Urine Neg (Neg); Leukocyte Esterase, Urine 3+ (Neg); Nitrite, Urine Neg (Neg); Protein, Urine 3+ (Neg); Urobilinogen, Urine NORM (Normal)
[2022-08-31 11:10] LABS: White Blood Cells, Urine TNTC /hpf (0-5)
[2022-08-31 11:12] LABS: Red Blood Cells, Urine TNTC /hpf (0-2)
[2022-08-31 11:21] LABS: Bacteria Many /hpf; Mucus Heavy (0-Heavy)
[2022-08-31 11:42] LABS: Squamous Epithelial Cells Rare /hpf (Few)
== END | disposition home or self-care (01) ==
LOC: LAB RH 09:48 → EDSTATUS 14:55
PROVIDERS: Internal Medicine
DX: N39.0 Urinary tract infection, site not specified (principal)
CPT/HCPCS: 81001; 87077; 87086; 87186

== ENCOUNTER → 2022-09-02 | Outpatient (CLI) | payer MEDICARE, OTHER ==
[2022-09-02 12:23] LABS: Prothrombin Time Results 41.7 Sec (9.7-11.5)
[2022-09-02 12:41] LABS: International Normalized Ratio 4.37
== END | disposition home or self-care (01) ==
LOC: LAB RH 11:09 → EDSTATUS 14:56
PROVIDERS: Internal Medicine
DX: I48.20 Chronic atrial fibrillation, unspecified (principal)
CPT/HCPCS: 85610

== ENCOUNTER → 2022-09-05 | Outpatient (CLI) | payer MEDICARE, OTHER ==
[2022-09-05 18:01] LABS: International Normalized Ratio 2.05; Prothrombin Time Results 20.5 Sec (9.7-11.5)
== END | disposition home or self-care (01) ==
LOC: LAB RH 13:20 → EDSTATUS 14:57
PROVIDERS: Internal Medicine
DX: I50.30 Unspecified diastolic (congestive) heart failure (principal); I48.20 Chronic atrial fibrillation, unspecified
CPT/HCPCS: 85610